=== PATIENT | female | born 2005 | race Two or more races ===

== ENCOUNTER 2024-07-08 10:46 | Emergency (ER) | payer OTHER ==
[~2024-07-08] VITALS: Ht 167.6 cm; Wt 74.1 kg
[2024-07-08 10:49] VITALS: BP 126/77; TEMP 97.4; O2SAT 100
[2024-07-08] MEDS ORDERED: SERT50TA29 PO (10:52)
[2024-07-08 11:35] LABS: HEMOGLOBIN 11.6 g/dl (12.0-15.5); MEAN CORPUSCULAR HEMOGLOBIN 25.8 pg (27.0-33.0); MEAN CORPUSCULAR HGB CONC 32.2 g/dl (32.0-36.5); PLATELET COUNT, AUTOMATED 291 10^3/uL (150-450); WHITE BLOOD COUNT 7.7 10^3/uL (4.0-10.0)
[2024-07-08 11:56] LABS: ETHYL ALCOHOL (ETHANOL) < 0.003 % (0.000-0.010)
[2024-07-08 11:58] LABS: ALBUMIN 3.7 G/DL (3.2-5.2); ALKALINE PHOSPHATASE 90 U/L (35-104); ALT/SGPT 419 U/L (7.0-40); AST/SGOT 365 U/L (<34); BILIRUBIN,DIRECT 0.2 MG/DL (<0.4); BILIRUBIN,TOTAL 0.5 MG/DL (0.3-1.2); BLOOD UREA NITROGEN 15 MG/DL (9-23); CALCIUM LEVEL 9.3 MG/DL (8.5-10.1); CARBON DIOXIDE LEVEL 23 MMOL/L (20-31); CHLORIDE LEVEL 107 MMOL/L (98-107); CREATININE FOR GFR 0.57 MG/DL (0.55-1.30); GLOMERULAR FILTRATION RATE > 60.0 (>60); GLUCOSE, FASTING 85 MG/DL (60-100); POTASSIUM SERUM 3.9 MMOL/L (3.5-5.1); SALICYLATE LEVEL < 3.0 MG/DL (<30); SODIUM LEVEL 138 MMOL/L (136-145); TOTAL PROTEIN 7.8 G/DL (5.7-8.2)
[2024-07-08 11:59] LABS: HCG, SERUM QUALITATIVE NEGATIVE (NEGATIVE)
[2024-07-08 12:00] LABS: THYROID STIMULATING HORMONE 1.512 uIU/ML (0.55-4.78)
[2024-07-08 12:20] LABS: AMPHETAMINES LEVEL URINE NEGATIVE (NEGATIVE); BARBITURATES URINE NEGATIVE (NEGATIVE); CANNABINOIDS URINE NEGATIVE (NEGATIVE); COCAINE METABOLITE URINE NEGATIVE (NEGATIVE); METHADONE URINE NEGATIVE (NEGATIVE); OPIATES URINE NEGATIVE (NEGATIVE); PHENCYCLIDINE URINE NEGATIVE (NEGATIVE)
[2024-07-08 12:24] LABS: BENZODIAZEPINES URINE POSITIVE (NEGATIVE)
== END 2024-07-08 13:55 | disposition home or self-care (01) ==
LOC: M ED 10:46
DX: F32.A Depression, unspecified (principal); F43.20 Adjustment disorder, unspecified; F41.9 Anxiety disorder, unspecified; F10.10 Alcohol abuse, uncomplicated; Z79.899 Other long term (current) drug therapy

== ENCOUNTER 2024-08-02 01:04 | Inpatient (IN) | payer OTHER ==
[~2024-08-02] VITALS: Ht 167.6 cm; Wt 75.0 kg
[~2024-08-02 01:04] MED LIST: SERT50TA29 PO
[2024-08-02 02:33] LABS: HEMATOCRIT 40.7 % (36.0-47.0); HEMOGLOBIN 13.3 g/dl (12.0-15.5); MEAN CORPUSCULAR HEMOGLOBIN 25.8 pg (27.0-33.0); MEAN CORPUSCULAR HGB CONC 32.7 g/dl (32.0-36.5); PLATELET COUNT, AUTOMATED 319 10^3/uL (150-450); RED BLOOD COUNT 5.15 10^6/uL (4.00-5.40); WHITE BLOOD COUNT 8.9 10^3/uL (4.0-10.0)
[2024-08-02 02:54] LABS: AMPHETAMINES LEVEL URINE NEGATIVE (NEGATIVE); BARBITURATES URINE NEGATIVE (NEGATIVE); BENZODIAZEPINES URINE NEGATIVE (NEGATIVE); CANNABINOIDS URINE NEGATIVE (NEGATIVE); COCAINE METABOLITE URINE NEGATIVE (NEGATIVE); METHADONE URINE NEGATIVE (NEGATIVE); OPIATES URINE NEGATIVE (NEGATIVE); PHENCYCLIDINE URINE NEGATIVE (NEGATIVE)
[2024-08-02 02:56] LABS: ETHYL ALCOHOL (ETHANOL) 0.261 % (0.000-0.010)
[2024-08-02 02:57] LABS: SALICYLATE LEVEL < 3.0 MG/DL (<30)
[2024-08-02 02:58] LABS: ALBUMIN 4.1 G/DL (3.2-5.2); ALKALINE PHOSPHATASE 101 U/L (35-104); ALT/SGPT 525 U/L (7.0-40); AST/SGOT 303 U/L (<34); BILIRUBIN,DIRECT 0.1 MG/DL (<0.4); BILIRUBIN,TOTAL 0.4 MG/DL (0.3-1.2); BLOOD UREA NITROGEN 9 MG/DL (9-23); CALCIUM LEVEL 9.8 MG/DL (8.5-10.1); CARBON DIOXIDE LEVEL 26 MMOL/L (20-31); CHLORIDE LEVEL 107 MMOL/L (98-107); CREATININE FOR GFR 0.64 MG/DL (0.55-1.30); GLOMERULAR FILTRATION RATE > 60.0 (>60); GLUCOSE, FASTING 101 MG/DL (60-100); POTASSIUM SERUM 4.1 MMOL/L (3.5-5.1); SODIUM LEVEL 143 MMOL/L (136-145); TOTAL PROTEIN 8.2 G/DL (5.7-8.2)
[2024-08-02 03:00] LABS: THYROID STIMULATING HORMONE 1.137 uIU/ML (0.55-4.78)
[2024-08-02 05:30] LABS: HEPATITIS B SURFACE ANTIGEN NEGATIVE (NEGATIVE)
[2024-08-02 05:49] LABS: HEPATITIS C VIRUS ABY INDEX < 0.02 INDEX (<0.8)
[2024-08-02 05:50] LABS: HEPATITIS B CORE ANTIBODY IGM NEGATIVE (NEGATIVE)
[2024-08-02] MEDS ORDERED: ZOLO100T PO (11:18)
[2024-08-02] MEDS ORDERED: HOME MED LIST COMPLETE! XX SCH (11:20)
[2024-08-02] MEDS ORDERED: ACETAMINOPHEN 325 MG TAB PO PRN (12:30)
[2024-08-02] MEDS ORDERED: IBUPROFEN 400MG TAB PO PRN (12:30)
[2024-08-02] MEDS ORDERED: traZODone 50 MG TAB PO PRN (12:30)
[2024-08-02] MEDS ORDERED: MAALOX 30 ML SUSP *UDC PO PRN (12:30)
[2024-08-02 14:24] VITALS: BP 115/65; TEMP 98; O2SAT 100
[2024-08-02] MEDS: diphenhydrAMINE 25MG CAP PO PRN (18:12)
[2024-08-03 06:22] VITALS: BP 123/65; TEMP 97.3; O2SAT 100
[2024-08-03 16:40] VITALS: BP 119/67; TEMP 99; O2SAT 99
[2024-08-03 19:47] LABS: INR 1.01; PARTIAL THROMBOPLASTIN TIME 26.6 SECONDS (24.8-34.2); PROTHROMBIN TIME 13.6 SECONDS (12.5-14.5)
[2024-08-03 19:58] LABS: HCG, SERUM QUALITATIVE NEGATIVE (NEGATIVE)
[2024-08-04 06:35] VITALS: BP 125/69; TEMP 97.8; O2SAT 100
[2024-08-04] MEDS: SERTRALINE 100 MG TAB PO SCH (09:23)
[2024-08-04] MEDS: NICOTINE 14 MG/24 HR TRANSDERMAL TD SCH (14:54)
[2024-08-04 15:01] VITALS: BP 120/52; TEMP 97.8; O2SAT 100
[2024-08-04] MEDS: MOM 30ML SUSPENSION UDC PO PRN (19:42)
[2024-08-05 06:28] VITALS: BP 96/55; TEMP 97.9; O2SAT 98
[2024-08-05 15:28] VITALS: BP 115/64; TEMP 98.5; O2SAT 100
[2024-08-06 06:13] VITALS: BP 104/58; TEMP 97.8; O2SAT 100
== END 2024-08-06 10:29 | disposition home or self-care (01) | DRG 881 ==
LOC: M ED 01:04 → M ED INP 12:27 → M PSY 14:25
PROVIDERS: ADMIT Psychiatry & Neurology Psychiatry; ATTEND Psychiatry & Neurology Psychiatry
DX: F32.A Depression, unspecified (principal); R45.851 Suicidal ideations; F41.1 Generalized anxiety disorder; F17.210 Nicotine dependence, cigarettes, uncomplicated; E28.2 Polycystic ovarian syndrome; F10.920 Alcohol use, unspecified with intoxication, uncomplicated; K76.89 Other specified diseases of liver; Z79.899 Other long term (current) drug therapy; Z56.6 Other physical and mental strain related to work